=== PATIENT | female | born 1990 | race Caucasian/White ===

== ENCOUNTER 2016-10-05 13:11 | Emergency (ER) | payer MEDICAID ==
--- NOTE | 2016-10-05 14:10 | EDM.PDOC ---
ED HPI GENERAL MEDICAL PROBLEM - General Chief Complaint: General Stated Complaint: GENERAL Time Seen by Provider: 10/05/16 13:40 Source of Information: Reports: Patient History Limitations: Reports: No Limitations - History of Present Illness INITIAL COMMENTS - FREE TEXT/NARRATIVE: According to patient she was started on piroxicam yesterday for her back spasms by Dr. Ortega in [place]. She has claims she took her piroxicam 20mg around 10 :30 today and 2 hrs late, around 12:30 pm she started to feel racing heart and her hand got cold and clammy and felt a little nausea.Pt claims she feels flushed and anxious. No chest pain or tightness. No lightheadedness or syncope. Since then she has been feeling weak and exhausted and hence here to be seen. No fever or chills. No abdominal pain. Onset: Today Onset Date: 10/05/16 Onset Time: 12:30 Severity: Mild Improves with: Reports: None Worsens with: Reports: None Associated Symptoms: Reports: Weakness. Denies: Confusion, Chest Pain, Fever/ Chills, Nausea/Vomiting, Rash, Seizure, Shortness of Breath, Syncope - Related Data Allergies Allergy/AdvReac Type Severity Reaction Status Date / Time cyclobenzaprine HCl Allergy Fatigue Verified 12/13/15 19:39 [From Flexeril] lactose Allergy Diarrhea Verified 12/13/15 19:39 methocarbamol Allergy Chest Pain Verified 12/13/15 19:39 Home Meds: Home Meds QUEtiapine [SEROquel] 400 mg PO BEDTIME 01/06/15 [History] PARoxetine HCl [Paroxetine HCl] 40 mg PO DAILY 06/06/15 [History] Omeprazole 20 mg PO DAILY 10/05/16 [History] Piroxicam 20 mg PO 10/05/16 [History] hydrOXYzine Pamoate [Hydroxyzine Pamoate] 50 mg PO TID 10/05/16 [History] traMADol HCl [Tramadol HCl] 50 mg PO Q6H PRN 10/05/16 [History] Past Medical History HEENT History: Reports: None Other HEENT History: wears contacts, lost teeth with and wears dentures that cause sores in mouth, will be getting implants Cardiovascular History: Reports: 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) Other Cardiovascular History: MVP Gastrointestinal History: Reports: GERD Other Gastrointestinal History: abdominal hernia Genitourinary History: Reports: STD, 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) 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: , 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) Musculoskeletal History: Reports: Arthritis Other Musculoskeletal History: scoliosis, OA in hips, 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, can affect skin and blood vessel diaz Psychiatric History: Reports: Anxiety, Depression, Emotional Problems, Panic Attack Other Psychiatric History: personality disorder Hematologic History: Reports: Anemia, 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) Other Hematologic History: low iron with - Past Surgical History Female Surgical History: Reports: Tubal Ligation Social & Family History - Family History Family Medical History: Noncontributory Cardiac: Reports: CAD, High Cholesterol, Hypertension, [place] Psychiatric: Reports: ADHD, Bipolar, Depression - Tobacco Use Smoking Status *Q: Current Every Day Smoker Years of Tobacco use: 12 Packs/Tins Daily: 0.5 Used Tobacco, but Quit: No Month Tobacco Last Used: May Second Hand Smoke Exposure: Yes - Caffeine Use Caffeine Use: Reports: Coffee, Energy Drinks, Soda - Alcohol Use Days Per Week of Alcohol Use: 1 Number of Drinks Per Day: 2 Total Drinks Per Week: 2 - Recreational Drug Use Recreational Drug Use: No ED ROS GENERAL - Review of Systems Review Of Systems: See Below Constitutional: Reports: Weakness. Denies: Fever, Chills, Fatigue, Night Sweats HEENT: Denies: Rhinitis, Sinus Problem, Vision Change Respiratory: Denies: Shortness of Breath, Cough, Sputum Cardiovascular: Reports: Palpitations. Denies: Chest Pain, Lightheadedness GI/Abdominal: Denies: Abdominal Pain, Anorexia, Nausea, Vomiting : Denies: Dysuria, Flank Pain Skin: Denies: Bruising, Pruritis, Rash Neurological: Denies: Dizziness, Headache, Seizure, Syncope Psychiatric: Denies: Anxiety, Confusion Hematologic/Lymphatic: Denies: Anemia, Easy Bleeding ED EXAM, GENERAL - Physical Exam Exam: See Below Exam Limited By: No Limitations General Appearance: Alert, WD/WN, No Apparent Distress, Anxious Eye Exam: Bilateral Eye: EOMI, PERRL Ears: Normal External Exam, Normal Canal, Hearing Grossly Normal, Normal TMs Ear Exam: Bilateral Ear: Auricle Normal, Canal Normal, TM normal Nose: Normal Inspection, Normal Mucosa, No Blood Throat/Mouth: Normal Inspection, Normal Lips, Normal Teeth, Normal Gums, Normal Oropharynx, Normal Voice, No Airway Compromise Head: Atraumatic, Normocephalic Neck: Normal Inspection, Supple, Non-Tender, Full Range of Motion Respiratory/Chest: No Respiratory Distress, Lungs Clear, Normal Breath Sounds, No Accessory Muscle Use, Chest Non-Tender Cardiovascular: Normal Peripheral Pulses, Regular Rate, Rhythm, No Edema, No Gallop, No JVD, No Murmur, No Rub Extremities: Normal Inspection, Normal Range of Motion, Non-Tender, Normal Capillary Refill, No Pedal Edema Neurological: Alert, Oriented, CN II-XII Intact, Normal Cognition, Normal Gait, Normal Reflexes, No Motor/Sensory Deficits Psychiatric: Normal Affect, Anxious Skin Exam: Warm, Intact EKG INTERPRETATION EKG Date: 10/05/16 Rhythm: NSR Rate (beats/min): 124 [place]: normal P-wave: present QRS: normal ST-T: normal QT: normal EKG Interpretation Comments: Sinus tachycardia Course - Vital Signs Text/Narrative:: Pt's EKG shows sinus tachycardia with rate fluctuating between 100-130 on the cardiac surgeon. Asymptomatic presently, slightly anxious. Her EKG shows sinus tachycardia, CBC is normal and CMP is normal. Pt just took her first dose of piroxicam today around 10:30 and she developed her flushed and anxious feeling with racing heart in 2hrs. Anxiety and flushing is less common side effect of piroxicam, but considering patient's underlying psychiatric condition, might have triggered the episode. I have advised patient to stop piroxicam and should improve with in 24 hrs. I have advised patient to call 's office and followup tomorrow. Last Recorded V/S: Last Vital Signs Temp 99.3 F 10/05/16 14:22 Pulse 125 H 10/05/16 14:22 Resp 22 H 10/05/16 14:22 BP 131/98 H 10/05/16 14:22 Pulse Ox 100 10/05/16 14:22 - Orders/Labs/Meds Orders: Active Orders 24 hr Category Date Time Status Cardiac Monitoring Discontinue [RC] Click to Edit Care 10/05/16 14:11 Active Cardiac Monitoring [RC] .As Directed Care 10/05/16 14:11 Active EKG Documentation Completion [RC] ASDIRECTED Care 10/05/16 14:00 Active Labs: Laboratory Tests 10/05/16 10/05/16 Range/Units 14:14 14:14 WBC 6.2 D (4.0-11.0) K/uL RBC 3.99 (3.80-5.80) M/uL Hgb 12.5 (11.5-16.5) g/dL Hct 37.3 (37.0-47.0) % MCV 94 (76-96) fL MCH 31.3 (27.0-32.0) pg MCHC 33.5 (31.0-35.0) g/dL RDW 12.8 (11.0-16.0) % Plt Count 173 D (150-500) K/uL MPV 9.7 (6.0-10.0) fL Neut % (Auto) 59.0 (45.0-70.0) % Lymph % (Auto) 31.9 (20.0-40.0) % [place] % (Auto) 8.3 (3.0-10.0) % Eos % (Auto) 0.8 L (1.0-5.0) % Baso % (Auto) 0.0 (0.0-0.5) % Neut # (Auto) 3.64 (2.00-7.50) K/uL Lymph # (Auto) 1.97 (1.50-4.00) K/uL [place] # (Auto) 0.51 (0.20-0.80) K/uL Eos # (Auto) 0.05 (0.04-0.40) K/uL Baso # (Auto) 0.00 L (0.02-0.10) K/uL Sodium 136 (136-145) mmol/L Potassium 3.3 L (3.5-5.1) mmol/L Chloride 103 (98-107) mmol/L Carbon Dioxide 26.2 (21.0-32.0) mmol/L Anion Gap 10.1 (5.0-15.0) mmol/L BUN 6 L (8-26) mg/dL Creatinine 0.98 (0.55-1.02) mg/dL Est Cr Clr Drug Dosing 65.07 mL/min Estimated GFR (MDRD) > 60 (>60) MLS/MIN BUN/Creatinine Ratio 6.1 (6-25) Glucose 95 (74-100) mg/dL Calcium 8.6 (8.5-10.1) mg/dL Total Bilirubin 0.5 D (0.0-1.0) mg/dL AST 17 (15-37) U/L ALT 18 (12-78) U/L Alkaline Phosphatase 90 (46-116) U/L Total Protein 6.7 (6.4-8.2) g/dL Albumin 3.6 (3.4-5.0) g/dL Globulin 3.1 (2.2-4.2) g/dL Albumin/Globulin Ratio 1.2 (0.8-2.0) Departure - Departure Time of Disposition: 14:55 Disposition: Home, Self-Care 01 Condition: good Clinical Impression: Drug-induced anxiety disorder - Discharge Information Instructions: Heat Therapy Referrals: PCP,Unknown [Primary Care Provider] - Forms: ED Department Discharge Additional Instructions: Stop taking the piroxicam now and in about 24 hours you should feel better. Follow up with your primary care provider tomorrow to make sure the heart rate went down to normal. If you have any further questions call [phone] or the clinic here at [phone]. - Problem List & Annotations (1) Drug-induced anxiety disorder SNOMED Code(s): 251727449, 036031008 Code(s): F19.980 - OTH PSYCHOACTIVE SUBSTANCE USE, UNSP W ANXIETY DISORDER Status: Acute - Problem List Review Problem List Initiated/Reviewed/Updated: Yes - My Orders Last 24 Hours: My Active Orders 10/05/16 14:00 EKG Documentation Completion [RC] ASDIRECTED 10/05/16 14:11 Cardiac Monitoring Discontinue [RC] Click to Edit Cardiac Monitoring [RC] .As Directed - Assessment/Plan Last 24 Hours: My Active Orders 10/05/16 14:00 EKG Documentation Completion [RC] ASDIRECTED 10/05/16 14:11 Cardiac Monitoring Discontinue [RC] Click to Edit Cardiac Monitoring [RC] .As Directed Assessment:: Piroxicam induced anxiety Plan: Pt's EKG shows sinus tachycardia with rate fluctuating between 100-130 on the cardiac surgeon. Asymptomatic presently, slightly anxious. Her EKG shows sinus tachycardia, CBC is normal and CMP is normal. Pt just took her first dose of piroxicam today around 10:30 and she developed her flushed and anxious feeling with racing heart in 2hrs. Anxiety and flushing is less common side effect of piroxicam, but considering patient's underlying psychiatric condition, might have triggered the episode. I have advised patient to stop piroxicam and should improve with in 24 hrs. I have advised patient to call 's office and followup tomorrow.
[2016-10-05 14:24] VITALS: BP 131/98
== END 2016-10-05 14:46 | disposition home or self-care (01) ==
LOC: LB.ED 13:11
DX: F19.980 Other psychoactive substance use, unspecified with psychoactive substance-induced anxiety disorder (principal); K21.9 Gastro-esophageal reflux disease without esophagitis; M19.90 Unspecified osteoarthritis, unspecified site; F32.9 Major depressive disorder, single episode, unspecified; F17.210 Nicotine dependence, cigarettes, uncomplicated; Z86.2 Personal history of diseases of the blood and blood-forming organs and certain disorders involving the immune mechanism; Z98.890 Other specified postprocedural states; Z91.011 Allergy to milk products; Z88.8 Allergy status to other drugs, medicaments and biological substances; Z79.899 Other long term (current) drug therapy
CPT/HCPCS: 36415; 80053; 85025; 93005; 99285; A0425; A0429

== ENCOUNTER 2016-12-23 18:40 | Emergency (ER) | payer MEDICAID ==
--- NOTE | 2016-12-23 19:03 | EDM.PDOC ---
ED HPI GENERAL MEDICAL PROBLEM - General Chief Complaint: General Stated Complaint: LIGHTHEADED Time Seen by Provider: 12/23/16 18:45 Source of Information: Reports: Patient History Limitations: Reports: No Limitations - History of Present Illness INITIAL COMMENTS - FREE TEXT/NARRATIVE: She states it feels like she is having an allergic reaction. She can't think of anything she did different, or ate. No lip, tongue or throat swelling. No wheezing. 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: Reports: Other (see below) (vistaril) - Related Data Allergies Allergy/AdvReac Type Severity Reaction Status Date / Time cyclobenzaprine HCl Allergy Fatigue Verified 12/23/16 19:16 [From Flexeril] lactose Allergy Diarrhea Verified 12/23/16 19:16 methocarbamol Allergy Chest Pain Verified 12/23/16 19:16 Home Meds: Home Meds QUEtiapine [SEROquel] 400 mg PO BEDTIME 01/06/15 [History] PARoxetine HCl [Paroxetine HCl] 40 mg PO DAILY 06/06/15 [History] Omeprazole 20 mg PO DAILY 10/05/16 [History] Piroxicam 20 mg PO 10/05/16 [History] hydrOXYzine Pamoate [Hydroxyzine Pamoate] 50 mg PO TID 10/05/16 [History] traMADol HCl [Tramadol HCl] 50 mg PO Q6H PRN 10/05/16 [History] Past Medical History HEENT History: Reports: None Other HEENT History: wears contacts, lost teeth with and wears dentures that cause sores in mouth, will be getting implants Cardiovascular History: Reports: 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) Other Cardiovascular History: MVP Gastrointestinal History: Reports: GERD Other Gastrointestinal History: abdominal hernia Genitourinary History: Reports: STD, 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) 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: , 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) Musculoskeletal History: Reports: Arthritis Other Musculoskeletal History: scoliosis, OA in hips, 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, can affect skin and blood vessel diaz Psychiatric History: Reports: Anxiety, Depression, Emotional Problems, Panic Attack Other Psychiatric History: personality disorder Hematologic History: Reports: Anemia, 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) Other Hematologic History: low iron with - Past Surgical History Female Surgical History: Reports: Tubal Ligation Social & Family History - Family History Family Medical History: Noncontributory Cardiac: Reports: CAD, High Cholesterol, Hypertension, [place] Psychiatric: Reports: ADHD, Bipolar, Depression - Tobacco Use Smoking Status *Q: Current Every Day Smoker Years of Tobacco use: 12 Packs/Tins Daily: 0.5 Used Tobacco, but Quit: No Month Tobacco Last Used: May Second Hand Smoke Exposure: Yes - Caffeine Use Caffeine Use: Reports: Coffee, Energy Drinks, Soda - Alcohol Use Days Per Week of Alcohol Use: 1 Number of Drinks Per Day: 2 Total Drinks Per Week: 2 - Recreational Drug Use Recreational Drug Use: No ED ROS GENERAL - Review of Systems Review Of Systems: See Below Constitutional: Reports: No Symptoms HEENT: Reports: No Symptoms Respiratory: Reports: No Symptoms Cardiovascular: Reports: No Symptoms GI/Abdominal: Reports: No Symptoms Musculoskeletal: Reports: No Symptoms Skin: Reports: No Symptoms Neurological: Reports: No Symptoms Psychiatric: Reports: Anxiety ED EXAM, GENERAL - Physical Exam Exam: See Below Exam Limited By: No Limitations General Appearance: Alert, WD/WN, No Apparent Distress Eye Exam: Bilateral Eye: Abnormal EOM, EOMI Ears: Normal External Exam Nose: Normal Inspection, Normal Mucosa Throat/Mouth: Normal Inspection, Normal Lips, Normal Gums, Normal Oropharynx, Normal Voice, No Airway Compromise Head: Atraumatic, Normocephalic Neck: Normal Inspection, Supple, Non-Tender, Full Range of Motion Respiratory/Chest: No Respiratory Distress, Lungs Clear, Normal Breath Sounds Cardiovascular: Regular Rate, Rhythm GI/Abdominal: Normal Bowel Sounds, Soft, Non-Tender Back Exam: Full Range of Motion Extremities: Normal Inspection, Normal Range of Motion Neurological: Alert, Oriented, CN II-XII Intact, Normal Gait Psychiatric: Normal Affect, Normal Mood Skin Exam: Warm, Dry, Intact Course - Vital Signs Last Recorded V/S: Last Vital Signs Temp 98.3 F 12/23/16 19:19 Pulse 115 H 12/23/16 19:19 Resp 16 12/23/16 19:19 BP 134/93 H 12/23/16 19:19 Pulse Ox 99 12/23/16 19:19 - Orders/Labs/Meds Orders: Active Orders 24 hr Category Date Time Status diphenhydrAMINE [Benadryl] Med 12/23/16 19:24 Ordered 60 mg IM BEDTIME PRN Medication Orders Diphenhydramine HCl (Benadryl) 60 mg IM BEDTIME PRN PRN Reason: Anxiety Last Admin: 12/23/16 19:28 Dose: 60 mg Meds: Medications Generic Name Dose Route Start Last Admin Trade Name Freq PRN Reason Stop Dose Admin Diphenhydramine HCl 60 mg 12/23/16 19:24 12/23/16 19:28 Benadryl IM 60 mg BEDTIME PRN Administration Anxiety Discontinued Medications Generic Name Dose Route Start Last Admin Trade Name Freq PRN Reason Stop Dose Admin Al Hydroxide/Mg Hydroxide 30 ml 12/23/16 19:24 12/23/16 19:31 Gi Cocktail PO 12/23/16 19:25 30 ml ONETIME ONE Administration - Re-Assessments/Exams Free Text/Narrative Re-Assessment/Exam: 12/23/16 19:27 Vitals are stable; no welts; she likely has anxiety but she states it feels different. She is sitting on her phone texting and appears in no distress what so ever. Free Text/Narrative Re-Assessment/Exam: 12/23/16 19:27 IM Benadryl and GI cocktail ordered. Departure - Departure Time of Disposition: 19:45 Disposition: Home, Self-Care 01 Condition: Good Clinical Impression: Allergic reaction, Anxiety - Discharge Information Forms: ED Department Discharge Additional Instructions: Continue taking all previously prescribed medications as directed. Drink plenty of fluids and get plenty of rest. Follow up with regular provider only if needed. Call with any questions. - My Orders Last 24 Hours: My Active Orders 12/23/16 19:24 diphenhydrAMINE [Benadryl] 60 mg IM BEDTIME PRN - Assessment/Plan Last 24 Hours: My Active Orders 12/23/16 19:24 diphenhydrAMINE [Benadryl] 60 mg IM BEDTIME PRN Plan: Home, rest; push fluids. Follow up with PCP early next week. Return if symptoms worsen.
[2016-12-23] MEDS ORDERED: GI Cocktail Oral Solution 30 ML PO ONE (19:24)
[2016-12-23] MEDS ORDERED: diphenhydrAMINE 50 MG/ML SDV IM PRN (19:24)
[2016-12-23 19:38] VITALS: BP 134/93
== END 2016-12-23 19:45 | disposition home or self-care (01) ==
LOC: LB.ED 18:40
DX: T78.40XA Allergy, unspecified, initial encounter (principal); F41.9 Anxiety disorder, unspecified; K21.9 Gastro-esophageal reflux disease without esophagitis; M19.90 Unspecified osteoarthritis, unspecified site; F32.9 Major depressive disorder, single episode, unspecified; F17.210 Nicotine dependence, cigarettes, uncomplicated; Z98.51 Tubal ligation status; Z88.8 Allergy status to other drugs, medicaments and biological substances; Z79.899 Other long term (current) drug therapy
CPT/HCPCS: 96372; 99283; A9270; J1200

== ENCOUNTER 2017-05-21 16:04 | Emergency (ER) | payer MEDICAID ==
[2017-05-21 16:17] VITALS: BP 123/76
[2017-05-21] MEDS ORDERED: Hydrocortisone/Neomycin/Polymyxin B Otic Susp 10 ML Bottle ONE (16:30)
[2017-05-21] MEDS ORDERED: Amoxicillin/Clavulanate K 875-125 MG Tab ONE (16:30)
--- NOTE | 2017-05-21 18:48 | EDM.PDOC ---
ED HPI GENERAL MEDICAL PROBLEM - General Chief Complaint: General Stated Complaint: L EAR POPPING Time Seen by Provider: 05/21/17 16:15 Source of Information: Reports: Patient History Limitations: Reports: No Limitations - History of Present Illness INITIAL COMMENTS - FREE TEXT/NARRATIVE: Patient is a 26 year old woman with left ear pain that is also stuffed up. She has had this for 4 days and it is getting worse and is causing dizzyness. No fever or chils or other complaints. Onset: Gradual Onset Date: 05/18/17 Onset Time: 08:00 Duration: Day(s): (4) Location: Reports: Head Quality: Reports: Ache Severity: Moderate Improves with: Reports: None Worsens with: Reports: None Associated Symptoms: Reports: Other (Dizzyness.) Left Ear Pain Score (Numeric/FACES): 3 - Related Data Allergies Allergy/AdvReac Type Severity Reaction Status Date / Time cyclobenzaprine HCl Allergy Fatigue Verified 12/23/16 19:16 [From Flexeril] lactose Allergy Diarrhea Verified 12/23/16 19:16 methocarbamol Allergy Chest Pain Verified 12/23/16 19:16 Home Meds: Home Meds QUEtiapine [SEROquel] 400 mg PO BEDTIME 01/06/15 [History] PARoxetine HCl [Paroxetine HCl] 40 mg PO DAILY 06/06/15 [History] Omeprazole 20 mg PO DAILY 10/05/16 [History] Piroxicam 20 mg PO DAILY 10/05/16 [History] hydrOXYzine Pamoate [Hydroxyzine Pamoate] 50 mg PO TID 10/05/16 [History] Past Medical History HEENT History: Reports: None Other HEENT History: wears contacts, lost teeth with and wears dentures that cause sores in mouth, will be getting implants Cardiovascular History: Reports: 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) Other Cardiovascular History: MVP Gastrointestinal History: Reports: GERD Other Gastrointestinal History: abdominal hernia Genitourinary History: Reports: STD, 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) 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: , 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) Musculoskeletal History: Reports: Arthritis Other Musculoskeletal History: scoliosis, OA in hips, 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, can affect skin and blood vessel diaz Psychiatric History: Reports: Anxiety, Depression, Emotional Problems, Panic Attack Other Psychiatric History: personality disorder Hematologic History: Reports: Anemia, 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) Other Hematologic History: low iron with - Past Surgical History Female Surgical History: Reports: Tubal Ligation Social & Family History - Family History Family Medical History: Noncontributory Cardiac: Reports: CAD, High Cholesterol, Hypertension, [place] Psychiatric: Reports: ADHD, Bipolar, Depression - Tobacco Use Smoking Status *Q: Current Every Day Smoker Years of Tobacco use: 12 Packs/Tins Daily: 0.5 Used Tobacco, but Quit: No Month Tobacco Last Used: May Second Hand Smoke Exposure: Yes - Caffeine Use Caffeine Use: Reports: Coffee, Energy Drinks, Soda - Alcohol Use Days Per Week of Alcohol Use: 1 Number of Drinks Per Day: 2 Total Drinks Per Week: 2 - Recreational Drug Use Recreational Drug Use: No ED ROS GENERAL - Review of Systems Review Of Systems: See Below Constitutional: Reports: No Symptoms HEENT: Reports: Ear Pain, Vertigo Respiratory: Reports: No Symptoms Cardiovascular: Reports: No Symptoms Endocrine: Reports: No Symptoms GI/Abdominal: Reports: No Symptoms : Reports: No Symptoms Musculoskeletal: Reports: No Symptoms Skin: Reports: No Symptoms Neurological: Reports: No Symptoms Psychiatric: Reports: Depression (Bipolar chronic) Hematologic/Lymphatic: Reports: No Symptoms Immunologic: Reports: No Symptoms ED EXAM, GENERAL - Physical Exam Exam: See Below Exam Limited By: No Limitations General Appearance: Alert, WD/WN, No Apparent Distress Eye Exam: Bilateral Eye: EOMI, Normal Fundi, Normal Inspection, Nystagmus, PERRL Ears: Normal External Exam, Normal Canal, Hearing Grossly Normal, Other (Left ear cerumen was lavaged out revealing OM.) Ear Exam: Left Ear: Swelling, Tenderness, TM Dull, TM Red, TM Bulging Nose: Normal Inspection, Normal Mucosa, No Blood Throat/Mouth: Normal Inspection, Normal Lips, Normal Teeth, Normal Gums, Normal Oropharynx, Normal Voice, No Airway Compromise Head: Atraumatic, Normocephalic Neck: Normal Inspection, Supple, Non-Tender, Full Range of Motion Respiratory/Chest: No Respiratory Distress, Lungs Clear, Normal Breath Sounds, No Accessory Muscle Use, Chest Non-Tender Cardiovascular: Normal Peripheral Pulses, Regular Rate, Rhythm, No Edema, No Gallop, No JVD, No Murmur, No Rub GI/Abdominal: Normal Bowel Sounds, Soft, Non-Tender, No Organomegaly, No Distention, No Abnormal Bruit, No Mass Back Exam: Normal Inspection, Full Range of Motion, NT Extremities: Normal Inspection, Normal Range of Motion, Non-Tender, Normal Capillary Refill, No Pedal Edema Neurological: Alert, Oriented, CN II-XII Intact, Normal Cognition, Normal Gait, Normal Reflexes, No Motor/Sensory Deficits Psychiatric: Normal Affect, Normal Mood Skin Exam: Warm, Dry, Intact, Normal Color, No Rash Lymphatic: No Adenopathy Course - Vital Signs Text/Narrative:: Uneventful ED course. She felt better after her left ear was lavaged out. She will be put on Augmentin 875 mg po bid x 10 days and Cortisporin otic suspension 3 drops qid to left ear x 7 days. Push fluids, tylenol 500 mg po q 4 hour, ibuprofen 800 mg po q 6 hours, rest, steam and recheck prn. Last Recorded V/S: Last Vital Signs Temp 36.6 C 05/21/17 16:16 Pulse 120 H 05/21/17 16:16 Resp 20 05/21/17 16:16 BP 123/76 05/21/17 16:16 Pulse Ox 97 05/21/17 16:16 Departure - Departure Time of Disposition: 18:52 Disposition: Home, Self-Care 01 Condition: Good Clinical Impression: Otitis media, Cerumen impaction - Discharge Information Instructions: Amoxicillin; Clavulanic Acid tablets, Hydrocortisone; Neomycin; Polymyxin B ear suspension Referrals: PCP,None [Primary Care Provider] - Forms: ED Department Discharge Care Plan Goals: RTC in two weeks to be evaluated by your primary health care provider. Take ear drops ad directed and augmentin as directed
== END 2017-05-21 16:45 | disposition home or self-care (01) ==
LOC: LB.ED 16:04
DX: H66.92 Otitis media, unspecified, left ear (principal); H61.22 Impacted cerumen, left ear; K21.9 Gastro-esophageal reflux disease without esophagitis; F41.0 Panic disorder [episodic paroxysmal anxiety]; F17.210 Nicotine dependence, cigarettes, uncomplicated; Z79.899 Other long term (current) drug therapy; Z88.8 Allergy status to other drugs, medicaments and biological substances
CPT/HCPCS: 69209; 99282; A9270

== ENCOUNTER 2019-12-15 15:07 | Emergency (ER) | payer MEDICAID ==
[2019-12-15 15:37] VITALS: BP 154/88; PULSE 85
--- NOTE | 2019-12-15 15:59 | EDM.PDOC ---
ED HPI GENERAL MEDICAL PROBLEM - General Chief Complaint: General Stated Complaint: BEE STING Time Seen by Provider: 12/15/19 15:34 Source of Information: Reports: Patient History Limitations: Reports: No Limitations - History of Present Illness INITIAL COMMENTS - FREE TEXT/NARRATIVE: Pt was stung by a Yellow Jacket just prior arrival. Took a Benadryl at home. Sting was right lower leg and swelled and got very red immediately. States she panicked and decided to come to ER. States she felt that her throat was scratchy initially but that has improved. Onset: Today, Sudden Onset Date: 12/15/19 Onset Time: 14:40 Duration: Hour(s): (about an hour or so) Location: Reports: Lower Extremity, Right Quality: Reports: Burning Severity: Mild Improves with: Reports: Medication, Rest Worsens with: Reports: None Associated Symptoms: Reports: No Other Symptoms. Denies: Diaphoresis, Shortness of Breath, Weakness - Related Data Allergies Allergy/AdvReac Type Severity Reaction Status Date / Time cyclobenzaprine HCl Allergy Fatigue Verified 12/23/16 19:16 [From Flexeril] lactose Allergy Diarrhea Verified 12/23/16 19:16 methocarbamol Allergy Chest Pain Verified 12/23/16 19:16 Home Meds: Home Meds QUEtiapine [SEROquel] 200 mg PO BEDTIME 01/06/15 [History] Baclofen 20 mg PO TID 12/15/19 [History] Celecoxib 200 mg PO DAILY 12/15/19 [History] DULoxetine [Cymbalta] 60 mg PO DAILY 12/15/19 [History] Ibuprofen 800 mg PO Q6HR PRN 12/15/19 [History] Propranolol [Inderal] 20 mg PO DAILY 12/15/19 [History] QUEtiapine [SEROquel] 200 mg PO BEDTIME 12/15/19 [History] Past Medical History - Past Health History Medical/Surgical History: Denies Medical/Surgical History HEENT History: Reports: None Other HEENT History: wears contacts, lost teeth with and wears dentures that cause sores in mouth, will be getting implants Cardiovascular History: Reports: 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) Other Cardiovascular History: MVP Gastrointestinal History: Reports: GERD Other Gastrointestinal History: abdominal hernia Genitourinary History: Reports: STD, 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) 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: , 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) Musculoskeletal History: Reports: Arthritis Other Musculoskeletal History: scoliosis, 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 Social & Family History - Family History Family Medical History: Noncontributory Cardiac: Reports: CAD, High Cholesterol, Hypertension, [place] Psychiatric: Reports: ADHD, Bipolar, Depression - Tobacco Use Smoking Status *Q: Current Every Day Smoker Years of Tobacco use: 16 Packs/Tins Daily: 0.2 Used Tobacco, but Quit: No Second Hand Smoke Exposure: Yes - Caffeine Use Caffeine Use: Reports: None Other Caffeine Use: 3-4 cups coffee daily one bottle of "pop" - Recreational Drug Use Recreational Drug Use: No ED ROS ALLERGIC REACTION - Review of Systems Review Of Systems: See Below Constitutional: Reports: No Symptoms HEENT: Reports: No Symptoms. Denies: Throat Swelling Respiratory: Denies: Shortness of Breath, Wheezing Cardiovascular: Reports: No Symptoms GI/Abdominal: Reports: No Symptoms Musculoskeletal: Reports: No Symptoms Skin: Reports: Other (YELLOW JACKET sting to right lower leg) Neurological: Reports: No Symptoms Psychiatric: Reports: Anxiety ED EXAM GENERAL NO PERIP PULSE - Physical Exam Exam: See Below Exam Limited By: No Limitations General Appearance: Alert, WD/WN, No Apparent Distress, Anxious Ears: Normal External Exam Nose: Normal Inspection Throat/Mouth: Normal Inspection, Normal Lips, Normal Gums, Normal Oropharynx, Normal Voice. No: Normal Teeth, No Airway Compromise Head: Atraumatic, Normocephalic. No: Facial Swelling Neck: Normal Inspection, Supple, Non-Tender, Full Range of Motion Respiratory/Chest: No Respiratory Distress, Lungs Clear, Normal Breath Sounds, No Accessory Muscle Use Cardiovascular: Regular Rate, Rhythm Psychiatric: Anxious Skin Exam: Warm, Other (yellow jacket sting right lower extremity, mildly erythematous and edematous) Course - Vital Signs Last Recorded V/S: Last Vital Signs Temp 98.4 F 12/15/19 15:25 Pulse 85 12/15/19 15:25 Resp 16 12/15/19 15:25 BP 154/88 H 12/15/19 15:25 Pulse Ox 97 12/15/19 15:25 - Orders/Labs/Meds Meds: Medications Discontinued Medications Generic Name Dose Route Start Last Admin Trade Name Lesly PRN Reason Stop Dose Admin Methylprednisolone Sodium Succinate 125 mg 12/15/19 16:00 12/15/19 16:07 Solu-Medrol IM 12/15/19 16:01 125 mg ONETIME ONE Administration Departure - Departure Time of Disposition: 16:10 Disposition: Home, Self-Care 01 Clinical Impression: Anxiety Bee sting reaction Qualifiers: Encounter type: initial encounter - Discharge Information *PRESCRIPTION DRUG MONITORING PROGRAM REVIEWED*: Not Applicable *COPY OF PRESCRIPTION DRUG MONITORING REPORT IN PATIENT SAMANTHA: Not Applicable Instructions: Bee, Wasp, or Hornet Sting, Adult Referrals: PCP,None [Primary Care Provider] - Forms: ED Department Discharge Additional Instructions: Continue to monitor for any adverse reactions to bee sting such as difficulty breathing, difficulty swallowing, wheezing, faster heart rate If you have any questions or concerns please call us at [phone] Sepsis Event Note (ED) - Focused Exam Vital Signs: Vital Signs Temp Pulse Resp BP Pulse Ox 12/15/19 15:25 98.4 F 85 16 154/88 H 97
[2019-12-15] MEDS: methylPREDNISolone Sodium Succinate 125 MG/2 ML SDV IM ONE (16:07)
--- NOTE | 2019-12-15 16:11 | EDM.PDOC ---
ED HPI GENERAL MEDICAL PROBLEM - General Chief Complaint: General Stated Complaint: BEE STING Time Seen by Provider: 12/15/19 15:34 Source of Information: Reports: Patient History Limitations: Reports: No Limitations - History of Present Illness INITIAL COMMENTS - FREE TEXT/NARRATIVE: Pt was stung by a Yellow Jacket just prior arrival. Took a Benadryl at home. Sting was right lower leg and swelled and got very red immediately. States she panicked and decided to come to ER. States she felt that her throat was scratchy initially but that has improved. Onset: Today, Sudden Onset Date: 12/15/19 Onset Time: 14:40 Duration: Hour(s): (about an hour or so) Location: Reports: Lower Extremity, Right Quality: Reports: Burning Severity: Mild Improves with: Reports: Medication, Rest Worsens with: Reports: None Associated Symptoms: Reports: No Other Symptoms. 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: Other Medication(s) Other Treatments STEREO EQUIPMENT INSTALLER: Benadryl 50mg - Related Data Allergies Allergy/AdvReac Type Severity Reaction Status Date / Time cyclobenzaprine HCl Allergy Fatigue Verified 12/23/16 19:16 [From Flexeril] lactose Allergy Diarrhea Verified 12/23/16 19:16 methocarbamol Allergy Chest Pain Verified 12/23/16 19:16 Home Meds: Home Meds QUEtiapine [SEROquel] 200 mg PO BEDTIME 01/06/15 [History] Baclofen 20 mg PO TID 12/15/19 [History] Celecoxib 200 mg PO DAILY 12/15/19 [History] DULoxetine [Cymbalta] 60 mg PO DAILY 12/15/19 [History] Ibuprofen 800 mg PO Q6HR PRN 12/15/19 [History] Propranolol [Inderal] 20 mg PO DAILY 12/15/19 [History] QUEtiapine [SEROquel] 200 mg PO BEDTIME 12/15/19 [History] Past Medical History - Past Health History Medical/Surgical History: Denies Medical/Surgical History HEENT History: Reports: None Other HEENT History: wears contacts, lost teeth with and wears dentures that cause sores in mouth, will be getting implants Cardiovascular History: Reports: 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) Other Cardiovascular History: MVP Gastrointestinal History: Reports: GERD Other Gastrointestinal History: abdominal hernia Genitourinary History: Reports: STD, 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) THIRD MATE History: Reports: , 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) Musculoskeletal History: Reports: Arthritis Other Musculoskeletal History: scoliosis, 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 Social & Family History - Family History Family Medical History: Noncontributory Cardiac: Reports: CAD, High Cholesterol, Hypertension, [place] Psychiatric: Reports: ADHD, Bipolar, Depression - Tobacco Use Smoking Status *Q: Current Every Day Smoker Years of Tobacco use: 16 Packs/Tins Daily: 0.2 Used Tobacco, but Quit: No Second Hand Smoke Exposure: Yes - Caffeine Use Caffeine Use: Reports: None Other Caffeine Use: 3-4 cups coffee daily one bottle of "pop" - Recreational Drug Use Recreational Drug Use: No ED ROS ALLERGIC REACTION - Review of Systems Review Of Systems: See Below HEENT: Reports: No Symptoms. Denies: Throat Pain, Throat Swelling Respiratory: Denies: Shortness of Breath, Wheezing Cardiovascular: Reports: No Symptoms. Denies: Chest Pain GI/Abdominal: Reports: No Symptoms Musculoskeletal: Reports: No Symptoms Skin: Reports: Other (localized reaction at site of Yellow Jacket sting right upper lateral lower leg.) Psychiatric: Reports: Anxiety Hematologic/Lymphatic: Reports: No Symptoms Immunologic: Reports: No Symptoms ED EXAM GENERAL NO PERIP PULSE - Physical Exam Exam: See Below Exam Limited By: No Limitations General Appearance: Alert, WD/WN, No Apparent Distress, Anxious Ears: Normal External Exam Nose: Normal Inspection Throat/Mouth: Normal Inspection, Normal Lips, Normal Gums, Normal Oropharynx, Normal Voice, No Airway Compromise Head: Atraumatic. No: Facial Swelling Respiratory/Chest: No Respiratory Distress, Lungs Clear, Normal Breath Sounds, No Accessory Muscle Use Cardiovascular: Normal Peripheral Pulses, Regular Rate, Rhythm, No Edema Neurological: Alert, Oriented, CN II-XII Intact, Normal Cognition, Normal Gait Skin Exam: Warm, Dry, Intact, Normal Color, Other (Yellow Jacket sting right upper lateral foreleg, mild erythema and edema c/w bee sting) Course - Vital Signs Last Recorded V/S: Last Vital Signs Temp 98.4 F 12/15/19 15:25 Pulse 85 12/15/19 15:25 Resp 16 12/15/19 15:25 BP 154/88 H 12/15/19 15:25 Pulse Ox 97 12/15/19 15:25 - Orders/Labs/Meds Meds: Medications Discontinued Medications Generic Name Dose Route Start Last Admin Trade Name Lesly PRN Reason Stop Dose Admin Methylprednisolone Sodium Succinate 125 mg 12/15/19 16:00 Solu-Medrol IM 12/15/19 16:01 ONETIME ONE - Re-Assessments/Exams Free Text/Narrative Re-Assessment/Exam: 12/15/19 16:08 Pt had taken Benadryl at home and she was essentially asymptomatic while in ER. States she is much less anxious than she was. She was given Solumedrol 125mg prophylactically and discharged. Departure - Departure Time of Disposition: 16:09 Disposition: Home, Self-Care 01 Preliminary Cause of *Q: Sepsis & Multi System Organ Failure Clinical Impression: Anxiety Bee sting reaction Qualifiers: Encounter type: initial encounter - Discharge Information *PRESCRIPTION DRUG MONITORING PROGRAM REVIEWED*: Not Applicable *COPY OF PRESCRIPTION DRUG MONITORING REPORT IN PATIENT SAMANTHA: Not Applicable Instructions: Bee, Wasp, or Hornet Sting, Adult Forms: ED Department Discharge Additional Instructions: Continue to monitor for any adverse reactions to bee sting such as difficulty breathing, difficulty swallowing, wheezing, faster heart rate If you have any questions or concerns please call us at [phone] Sepsis Event Note (ED) - Focused Exam Vital Signs: Vital Signs Temp Pulse Resp BP Pulse Ox 12/15/19 15:25 98.4 F 85 16 154/88 H 97
== END 2019-12-15 16:10 | disposition home or self-care (01) ==
LOC: LB.ED 15:07
DX: T63.441A Toxic effect of venom of bees, accidental (unintentional), initial encounter (principal); F41.9 Anxiety disorder, unspecified; F32.9 Major depressive disorder, single episode, unspecified; F17.210 Nicotine dependence, cigarettes, uncomplicated; M19.90 Unspecified osteoarthritis, unspecified site; Z88.8 Allergy status to other drugs, medicaments and biological substances; Z91.011 Allergy to milk products; Z79.899 Other long term (current) drug therapy
CPT/HCPCS: 96372; 99283; J2930